=== PATIENT | male | born 1990 | race Caucasian/White ===

== ENCOUNTER 2023-03-03 08:53 | Emergency (ER) | payer OTHER, SELFPAY ==
[2023-03-03 09:14] VITALS: BP 124/61; PULSE 104; RESP 18; TEMP 37.7; O2SAT 97
--- NOTE | 2023-03-03 09:25 | ED.URI ---
HPI - URI/Sore Throat General Chief Complaint: Upper Respiratory Infection Stated Complaint: flu symptoms Time Seen by Provider: 03/03/23 09:22 Source: patient, RN notes reviewed and old records reviewed Mode of arrival: ambulatory Limitations: no limitations History of Present Illness HPI Narrative: 33 year old male presents to [facility] care with complaints of sore throat, fevers, chills, headache and body aches, cough and congestion which started last night. Patient reports that he has taken some Tylenol and Mucinex for his symptoms. Patient also reports that he wants to be checked for urinary tract infection also that he is having some difficulty urinating, states seems to have to push to urinate, denies any burning or any frequency or urgency with his urination, reports bilateral flank and lower back pain. Patient reports no history of kidney stones.Patient has been on Flomax in the past but states that it didn't help. Patient reports no concern for any exposure to STD's. Patient reports allergy to Penicillin but reports that he can take Amoxicillin and states that it works good for him. MD elicited complaint: fever, cough, sore throat, rhinorrhea, nasal congestion and other (body aches, difficulty with urination) Pertinent past history: other (previous) Onset (ago): day(s) (2 urinary symptoms, 1 day strep symptoms) Pain scale (0-10): 8 Able to tolerate fluids by mouth: Yes Exacerbating factors: swallowing Treatments prior to arrival: acetaminophen and other (Mucinex) Related Data Allergies Allergy/AdvReac Type Severity Reaction Status Date / Time Penicillins Allergy Hives Verified 03/03/23 09:21 Review of Systems Review of Systems: CONSTITUTIONAL: Reports malaise, chills, sweats, or fever. EYES: Denies visual changes, redness, or discharge. ENT: Reports rhinorrhea, congestion, sinus pain, no otalgia and positive for sore throat. CARDIOVASCULAR: Denies chest pain, palpitations, or edema. RESPIRATORY: Reports cough.? Denies dyspnea. GASTROINTESTINAL: Denies abdominal pain, nausea, vomiting, diarrhea reorts some difficulty urination, reports feels like he has to push to urinate, no burning or pain, states bilateral flank and low back pain. SKIN: Denies rash or itching. MUSCULOSKELETAL: Reports myalgia. NEUROLOGIC: Reports headache. All systems reviewed & are unremarkable except as noted in HPI and below PMFSH Past Medical History Medical History (Updated 03/03/23 @ 10:10 by Rosalva Dougherty NP) Strep pharyngitis Social History Social History (Updated 03/03/23 @ 10:07 by Rosalva Dougherty NP) Smoking packs per day: 1 Smoking cigarettes per day: 20.0 Smoking status: Current every day smoker Tobacco type: cigarettes Alcohol intake: current Alcohol use details: social Substance use type: does not use Gender identity (if verbalized by the patient): Male Comments At time of signature, agree with nursing past medical, surgical, social and family history. There is no relevant family history pertinent to the presenting complaint Exam Narrative: GENERAL: Well-appearing, well-nourished, and in no acute distress. HEAD: Normocephalic EYES: PERRLA, conjunctivae clear ENT: Nares clear, turbinates edematous and erythematous, clear discharge. Mucous membranes moist. TM pearly crook with dull light reflex bilaterally; no tragal tenderness. Oropharynx erythematous without lesions. Tonsils red enlarged and without exudate, no drooling, no hoarseness, no trismus, uvula midline.some post nasal discharge NECK: Supple. lymphadenopathy CHEST: Clear to auscultation, breath sounds equal. No wheezing, rhonchi, rales, or stridor. No respiratory distress, speaks in full sentences.SAO2 97% on room air. HEART: Regular rate and rhythm. No murmur heard. SKIN: Warm, dry, no rash. NEURO: Alert and oriented x3. PSYCH: Normal mood and affect Course Course Emergency Course: Patient is aware of
== END 2023-03-03 10:00 | disposition home or self-care (01) ==
PROVIDERS: Emergency Provider Registered Nurse; PCP Nurse Practitioner Family
DX: J02.0 Streptococcal pharyngitis (principal); R39.198 Other difficulties with micturition; F17.210 Nicotine dependence, cigarettes, uncomplicated
CPT/HCPCS: 81003; 87086; 87880; 99213; G0463